=== PATIENT | female | born 1955 | race Caucasian/White ===

== ENCOUNTER 2023-08-04 06:37 | Day surgery (SDC) | payer OTHER, SELFPAY ==
[2023-07-30 12:46] VITALS: BMI 39.9
[2023-07-30 13:08] LABS: Hematocrit 41.2 % (37.0-47.0); Hemoglobin 13.9 g/dL (12.0-16.0); Mean Corp Hgb Conc. 33.7 g/dL (33.0-37.0); Mean Corpuscular Hgb 30.8 pg (27.0-31.0); Mean Corpuscular Volume 91.4 fL (81.0-99.0); Mean Platelet Volume 9.5 fL (7.4-10.4); Platelet Count 259 10^3/uL (130-400); Red Blood Cell Count 4.51 10^6/uL (4.20-5.40); Red Cell Dist. Width 13.2 % (11.5-14.5); White Blood Cell Count 7.5 10^3/uL (4.8-10.8)
[2023-07-30 13:28] LABS: Blood Urea Nitrogen 20 mg/dl (7-17); Calcium 9.6 mg/dl (8.4-10.2); Carbon Dioxide 26 mmol/L (22-30); Chloride 105 mmol/L (98-107); Estimated Creatinine Clearance 66 ml/min; Glucose 95 mg/dl (70-99); Potassium 4.6 mmol/L (3.5-5.1); Sodium 139 mmol/L (135-145); eGFR > 60.00
[2023-08-04] VITALS (14 sets, daily range): BP systolic 102–139; BP diastolic 51–87; BMI 39.9; BMI 40.3
[2023-08-04] MEDS: Pyridium 200 MG PO (12:25)
[2023-08-04] MEDS: HEPARIN 5000 UNITS SC (12:25)
[2023-08-04 12:46] LABS: Glucose - Point of Care 94 mg/dl (70-99)
[2023-08-04] MEDS: TRANSDERM-SCOP 1 PATCH TRANSDERM (12:50)
[2023-08-04] MEDS: TYLENOL 1000 MG PO (12:51)
[2023-08-04] MEDS: NORMOSOL-R 1000 IV (12:53)
[2023-08-04 14:50] LABS: Glucose - Point of Care 120 mg/dl (70-99)
[2023-08-04 18:30] LABS: Glucose - Point of Care 166 mg/dl (70-99)
[2023-08-04] MEDS: SUBLIMAZE 50 MCG IV ×2 (18:53→19:06)
[2023-08-04 18:55] LABS: Hematocrit 36.6 % (37.0-47.0); Hemoglobin 12.7 g/dL (12.0-16.0)
[2023-08-04] MEDS: TORADOL 15 MG IV (19:00)
[2023-08-04] MEDS: ZOFRAN 4 MG IV (19:18)
[2023-08-04] MEDS: DEMEROL 12.5 MG IV ×2 (19:27→19:35)
[2023-08-04] MEDS: NSS 1000 IV (19:38)
[2023-08-04 21:03] LABS: Glucose - Point of Care 129 mg/dl (70-99)
[2023-08-04] MEDS: PLAQUENIL 200 MG PO (21:04)
[2023-08-04] MEDS: COLACE 100 MG PO (21:04)
--- NOTE | 2023-08-04 21:10 | PTCARENOTE ---
Received patient from PACU via bed approx 20:40. Pt AAOX3. VSS. Pox: 94% 4L NC. IVFs infusing without difficulty. Call reddy within reach. Plan of care ongoing.
--- NOTE | 2023-08-04 21:22 | SUR.PHASEI ---
patient medicated for pain and shivers in pacu with combination of Demerol for pain and shivers and Fentanyl and toradol. Zofran for nausea with relief. pain controlled. keep on O2 for history of sleep apnea,
[2023-08-05] MEDS: TORADOL 15 MG IV ×3 (00:36→13:20)
[2023-08-05 03:00] VITALS: BP 123/72
[2023-08-05] MEDS: NSS 1000 IV (04:15)
--- NOTE | 2023-08-05 05:00 | DOWNTIME ---
There was a [employer] Room Downtime on 08/05/2023 from 0100 to 08/05/2023 at 0439. Downtime documentation of patient's care, including medication administrations, has been reconciled in the electronic record per guidelines. Refer to the
patient's paper chart under the miscellaneous tab to see printed paper medication records and downtime forms.
[2023-08-05 07:20] VITALS: BP 116/64
--- NOTE | 2023-08-05 07:58 | W.PN.GYN ---
Today's Communication / Plan
-
1. voiding trial
2. lab work pending
3. plan to d/c home
Physician Note
-
Assessment and Plan:
67 yo woman POD 1 s/p robotic supracervical hysterectomy, BSO, sacrocolpopexy, lysis of adhesions, posterior colporrhaphy with perineoplasty, single incision sling and cystoscopy: patient is doing well postop day 1 and meeting postoperative
milestones.
1. Postoperative Care
-hep lock iv
-advance to diabetic diet
-cbc: hgb 12.7 in PACU, pending this morning
-bmp: pending
-uop: borderline adequate
-dvt ppx: lovenox, ambulation, scds
-tov: pending
-packing removed
2. dispo
-plan for d/c home today
Subjective:
moderate postoperative abdominal pain, minimal spotting, jarquin and packing removed, denies fevers/chills, nausea/vomitting, chest pain or sob.
Objective:
Intake and Output
08/03/23 08/04/23 08/05/23 08/06/23
06:59 06:59 06:59 06:59
Intake Total 1430 / 1430
Output Total 900 / 900
Balance 530 / 530
Intake:
Oral fluids 30 / 30
IV fluids (Total) 1400 / 1400
normosol 150 / 150
Output:
Urine, Jarquin 900 / 900
Vital Signs
Temp Pulse Resp BP Pulse Ox
98.0 F 94 18 116/64 94
08/05/23 07:20 08/05/23 07:20 08/05/23 07:20 08/05/23 07:20 08/05/23 07:20
exam:
Abdomen: soft, nontender, nondistended
Incisions: clean, dry, intact
: spotting on pad
[2023-08-05] MEDS: SINGULAIR 10 MG PO (08:13)
[2023-08-05] MEDS: PLAQUENIL 200 MG PO (08:14)
[2023-08-05] MEDS: PEPCID 20 MG PO (08:14)
[2023-08-05] MEDS: ZOLOFT 75 MG PO (08:14)
[2023-08-05] MEDS: PROTONIX 40 MG PO (08:14)
[2023-08-05] MEDS: COLACE 100 MG PO (08:14)
[2023-08-05 08:40] LABS: Hematocrit 33.6 % (37.0-47.0); Hemoglobin 11.2 g/dL (12.0-16.0); Mean Corp Hgb Conc. 33.3 g/dL (33.0-37.0); Mean Corpuscular Volume 93.1 fL (81.0-99.0); Mean Platelet Volume 9.5 fL (7.4-10.4); Platelet Count 193 10^3/uL (130-400); Red Blood Cell Count 3.61 10^6/uL (4.20-5.40); Red Cell Dist. Width 13.9 % (11.5-14.5); White Blood Cell Count 13.5 10^3/uL (4.8-10.8)
[2023-08-05 08:54] LABS: Glucose - Point of Care 104 mg/dl (70-99)
[2023-08-05 09:23] LABS: Blood Urea Nitrogen 13 mg/dl (7-17); Carbon Dioxide 27 mmol/L (22-30); Chloride 108 mmol/L (98-107); Estimated Creatinine Clearance 73 ml/min; Potassium 3.9 mmol/L (3.5-5.1); Sodium 139 mmol/L (135-145)
[2023-08-05 11:43] VITALS: BP 131/62
[2023-08-05 12:48] LABS: Glycohemoglobin (HgbA1c) 5.8 % (4.0-5.6)
[2023-08-05] MEDS: NSS IV (13:20)
--- NOTE | 2023-08-05 14:47 | CM ---
Initial assessment completed with patient with in room. Patient lives with her in a 1 story home with no basement and 4 steps to enter. [employer] was independent, drove. No DME, no in-home services. Pharmacy is [facility] in [place] and PCP
is Dr. Daniela Small. Anticipate no needs.
--- NOTE | 2023-08-05 14:51 | CM ---
Patient has been medically cleared for discharge to home with no additional skilled services. transported home.
== END 2023-08-05 14:16 | disposition home or self-care (01) ==
LOC: SDS 06:37
PROVIDERS: ATTENDING PHYSICIAN Obstetrics & Gynecology; FAMILY PHYSICIAN Nurse Practitioner Family
DX: N81.3 Complete uterovaginal prolapse (principal); N39.3 Stress incontinence (female) (male); N36.41 Hypermobility of urethra
CPT/HCPCS: 57425; 58542; 57250; 57288; 88305; 36415; 80048; 80051; 82565; 82962; 83036; 84520; 85014; 85018; 85027; 86850; 86900; 86901; C1763; C1771

== ENCOUNTER → 2023-12-30 10:39 | Outpatient (REF) | payer OTHER, SELFPAY | LOC: RCS 10:39 | PROVIDERS: ATTENDING PHYSICIAN Nurse Practitioner Family; REFERRING PHYSICIAN Internal Medicine Cardiovascular Disease | DX: R00.2 Palpitations (principal) | CPT/HCPCS: 93225; 93226 ==

== ENCOUNTER 2024-08-11 06:11 | Day surgery (SDC) | payer OTHER, SELFPAY ==
[2024-08-11 07:40] VITALS: BMI 39.9
[2024-08-11 07:45] VITALS: BP 148/86
[2024-08-11 08:03] VITALS: BMI 39.9
[2024-08-11 08:22] LABS: Glucose - Point of Care 112 mg/dl (70-99)
[2024-08-11 10:49] LABS: Glucose - Point of Care 105 mg/dl (70-99)
== END 2024-08-11 11:30 | disposition home or self-care (01) ==
LOC: SDS 06:11
PROVIDERS: ATTENDING PHYSICIAN Internal Medicine Gastroenterology
DX: K29.50 Unspecified chronic gastritis without bleeding (principal); K31.89 Other diseases of stomach and duodenum; R93.3 Abnormal findings on diagnostic imaging of other parts of digestive tract; K86.9 Disease of pancreas, unspecified; Z98.890 Other specified postprocedural states; T18.2XXA Foreign body in stomach, initial encounter; Y93.89 Activity, other specified; Z87.19 Personal history of other diseases of the digestive system
CPT/HCPCS: 43259; 43247; 43239; 88305; 82962

== ENCOUNTER → 2025-04-11 12:00 | Outpatient (REF) | payer OTHER, SELFPAY | LOC: DHSLP 12:00 | PROVIDERS: ATTENDING PHYSICIAN Internal Medicine Critical Care Medicine; FAMILY PHYSICIAN Family Medicine | DX: G47.33 Obstructive sleep apnea (adult) (pediatric) (principal) | CPT/HCPCS: 95800 ==